=== PATIENT | female | born 1965 | race Caucasian/White ===

== ENCOUNTER → 2016-04-24 | Outpatient (CLI) | payer OTHER | LOC: MMPC 11:11 | PROVIDERS: ATTEND Surgery | DX: R19.7 Diarrhea, unspecified (principal); R13.10 Dysphagia, unspecified | CPT/HCPCS: 99213; G0463 ==

== ENCOUNTER → 2016-05-06 | Outpatient (CLI) | payer OTHER ==
--- NOTE | 2016-05-06 14:54 | DI ---
PA /LATERAL CHEST X-RAY, 05/06/2016 2:26 PM : Clinical History: Cough with hemoptysis. Previous Exam: None at this facility. There is no acute soft tissue or bony abnormality. Heart size is normal. Lungs are clear. Mediastinal structures are normal. There are no pulmonary nodules. IMPRESSION: Normal chest x-ray.
--- NOTE | 2016-05-06 15:33 | DI ---
CT CHEST W/O CONTRAST,05/06/2016 2:26 PM: Clinical History: Cough with hemoptysis. Previous Exam: None at this facility. Findings: Multiple helically acquired CT images are obtained through the chest without contrast, and demonstrat e clear lungs. The cardiomediastinum and bony thorax are unremarkable. Skeletal structures are unremarkable. The thyroid is normal. There is no infiltrate nor effusion. Skeletal structures are unremarkable. Mild degenerative changes of the thoracic spine are seen. Impression: Normal chest.
--- NOTE | 2016-05-06 16:07 | DI ---
US SOFT TISSUE HEAD/NECK,05/06/2016 2:26 PM: Clinical History: Neck fullness. Previous Exam: None at this facility. Findings: Multiple grayscale and color Doppler sonographic images are obtained through the thyroid. The right t hyroid lobe measures 4.6 x 1.2 x 1.5 cm and the left thyroid lobe measures 5.2 x 1.4 x 1.4 cm. The thyroid isthmus measures 4 mm. There is a 4 mm hypoechoic area within the right inferior medial thyroid lobe. Impression: A 4 mm simple cyst within the medial right lobe of the thyroid otherwise unremarkable.
== END ==
LOC: RAD 14:08
PROVIDERS: ATTEND Nurse Practitioner Family
DX: R05 Cough (principal); R22.1 Localized swelling, mass and lump, neck
CPT/HCPCS: 71020; 71250; 76536

== ENCOUNTER → 2016-06-11 | Outpatient (CLI) | payer OTHER | LOC: MMPC 09:00 | PROVIDERS: ATTEND Nurse Practitioner Family | DX: I10 Essential (primary) hypertension (principal); G47.33 Obstructive sleep apnea (adult) (pediatric) | CPT/HCPCS: 99213; G0463 ==

== ENCOUNTER → 2016-07-16 | Outpatient (CLI) | payer OTHER ==
[2016-07-16 12:58] LABS: BLOOD UREA NITROGEN 17 mg/dL (7-22); BUN/CREATININE RATIO 24.28 (6-20); CALCIUM 9.4 mg/dL (8.7-10.7); EST GLOMERULAR FILTRATION > 60 (>60 ml/min/1.73m(2))
== END ==
LOC: LAB 12:28
PROVIDERS: ATTEND Otolaryngology
DX: J32.4 Chronic pansinusitis (principal)
CPT/HCPCS: 36415; 80048